=== PATIENT | male | born 2000 | race Caucasian/White ===

== ENCOUNTER 2022-04-05 21:36 | Emergency (ER) | payer MEDICAID, SELFPAY ==
[2022-04-05 21:38] VITALS: BP 148/77; PULSE 109; RESP 16; TEMP 36.5; BMI 21.9
[2022-04-05 21:40] VITALS: BP 148/77; PULSE 109; RESP 16; TEMP 36.5
--- NOTE | 2022-04-05 21:52 | EX.ED.DYSGE1 ---
HPI History of Present Illness Chief Complaint: Complaint Informant: patient Onset/Context/Timing Onset: Days (2-3) Context: Gradual Onset Timing: Continuous Quality: Burning Location: Urethra Worsened by: Urination Relieved by: Nothing Narrative Narrative: Patient presents with dysuria that has been getting worse over the last 2 to 3 days. Patient states it is gradually getting worse. Patient states he has a burning sensation in his urethra. Patient states it is worse with urination. Patient states nothing seems to help with it. Patient states he did have some pain in his low back that was intermittent. Patient denies any pain in his back now. Patient also states he had some clear urethral discharge that did have some blood in it. Patient admits to an episode of a subjective fever. Patient states he took some ibuprofen and it resolved. Patient denies any nausea or vomiting. Patient states he is not sexually active. PFSH PFSH Medical History no medical history no medical history Home Medications doxycycline monohydrate 100 mg capsule 100 mg PO BID #14 CAPSULES 04/05/22 [Rx Last Taken Unknown] Allergy/AdvReac Type Severity Reaction Status Date / Time No Known Allergies Allergy Verified 04/05/22 21:40 Surgical History no surgical history no surgical history Social History Smoking Status: Never smoker ROS ROS ED Constitutional Constitutional ED: Reports fever(s) and subjective; Denies chills Eyes Eyes: Denies blurry vision or change in vision ENT ENT ED: Denies rhinorrhea or sore throat Cardiovascular Cardiovascular: Denies chest pain or palpitations Respiratory/Chest Respiratory/Chest: Denies cough or dyspnea Gastrointestinal Gastrointestinal: Denies nausea or vomiting Genitourinary Genitourinary ED: Reports dysuria and hematuria Musculoskeletal Musculoskeletal: Reports back pain and neck pain Integumentary Denies abscess or rash Neurologic Neurologic: Denies headache(s) or weakness Allergic/Immunologic Allergic/Immunologic ED: Denies mouth swelling or urticaria EXAM Physical Exam Const Vital Signs: 04/05/22 21:38 04/05/22 21:40 Temperature 97.7 F L 97.7 F L Temperature Source Temporal Temporal Pulse Rate 109 H 109 H Respiratory Rate 16 16 Blood Pressure 148/77 H 148/77 H Blood Pressure Mean 100 100 Positive well nourished and well developed General Appearance ED: well developed HEENT Reports moist mucous membranes Neck supple and no JVD Resp normal respiratory effort and clear to auscultation bilaterally Cardio regular rate, regular rhythm and no murmurs GI normal to inspection, nondistended, normoactive bowel sounds Palpation: soft and tender suprapubic (Mild); Negative for guarding or rebound tenderness present Extremity normal to inspection General Extremety ED: Negative for edema or tenderness General Extremity: Negative for edema Neuro oriented x3, CN's II-XII intact bilaterally and no sensory deficits noted Sensorium / Orientation: alert Motor Exam: strength 5/5 throughout Psych mental status grossly normal Skin no rashes or lesions noted MDM MDM MDM Narrative Medical decision making narrative: Urinalysis shows a leukocyte esterases of 100 with 10-25 white blood cells. Urine culture was ordered. Since patient is a 21-year-old male, the most likely etiology is a sexually transmitted disease. GC and Chlamydia cultures are pending. Patient was given a dose of Rocephin, Zithromax, and doxycycline here. Patient was given a prescription for doxycycline. Patient was instructed to follow-up with his primary care physician for final culture results. Patient understood and was agreeable with the plan. All questions were answered. Lab Data Attestation: I reviewed the patient's lab results. Labs: Laboratory Results - last 24 hr 04/05/22 22:06 Urine Color Yellow Urine Clarity Clear Urine pH 6.0 Ur Specific [place] 1.020 Urine Protein 15 H Urine Glucose (UA) Normal Urine Ketones Negative Urine Occult Blood 10 H Urine Nitrite Negative Urine Bilirubin Negative Urine Urobilinogen Normal Ur Leukocyte Esterase 100 H Urine RBC 0-5 SEEN Urine WBC 10-25 SEEN Ur Squamous Epith Cells 0-5 SEEN Urine Bacteria 0 SEEN Urine Mucus 0 SEEN Discharge Plan Triage Chief Complaint: Complaint ED Provider: Morales Douglas Dx/Rx/DC Orders Clinical Impression: Urinary tract infection Instructions: ED Urinary Tract Infections in Men Prescriptions: New doxycycline monohydrate 100 mg capsule 100 mg PO BID Qty: 14 0RF Primary Care Provider: Care Physician,No Primary Referrals: Joe Montes MD [Med Staff - [employer]] - 5-7 Days Care Physician,No Primary [Primary Care Provider] - Disposition Disposition: Home, Self Care
[2022-04-05 22:15] LABS: Bacteria 0 SEEN /hpf (None Seen); Mucous, Urine 0 SEEN /hpf (<or=2+)
[2022-04-05 22:21] LABS: Color, Urine Yellow (Yellow); Glucose, Dipstick Normal (Normal); Ketone-Dipstick Negative (Negative); Leukocyte Esterase-Dipstick 100 /ul (Negative); Nitrite-Dipstick Negative (Negative); Occult Blood-Urine 10 /ul (Negative); Protein-Dipstick 15 mg/dl (Negative); Urine Bilirubin Dipstick Negative (Negative); Urine Clarity Clear (Clear); Urine Urobilinogen Normal (Normal)
[2022-04-05 22:33] LABS: Red Blood Cells-Urine 0-5 SEEN /hpf (0-5); Squamous Epithelial Cells - UA 0-5 SEEN /hpf (0-5); White Blood Cells 10-25 SEEN /hpf (0-5)
[2022-04-05] MEDS: Azithromycin 250 MG Tablet 1000 MG PO (23:20)
[2022-04-05] MEDS: Doxycycline 100 MG CAPSULE PO (23:20)
[2022-04-05] MEDS: Ceftriaxone 500 MG Vial 250 MG IM (23:24)
[2022-04-06 00:30] LABS: Chlamydia Trachomatis by PCR Negative (Negative); Neisserai gonorrhoeae by PCR Negative (Negative); Probe Check PASS; Sample Adequacy Control PASS; Specimen Processing Control PASS
== END 2022-04-05 23:45 | disposition home or self-care (01) ==
PROVIDERS: Emergency Provider Emergency Medicine; Visit Provider Emergency Medicine
DX: N39.0 Urinary tract infection, site not specified (principal)
CPT/HCPCS: 81001; 87086; 87491; 87591; 96372; 99283